=== PATIENT | male | born 1990 ===

== ENCOUNTER 2020-11-18 05:13 | Emergency (ER) | payer SELFPAY ==
[~2020-11-18] VITALS: Ht 170.2 cm; Wt 69.5 kg
[2020-11-18 05:14] VITALS: BP 130/85
[2020-11-18] MEDS ORDERED: PROPARACAINE OPHTH 0.5%, 15ML ONE (05:17)
[2020-11-18] MEDS ORDERED: FLUORESCEIN OPHTHALMIC 1 MG STRIP ONE (05:17)
--- NOTE | 2020-11-18 05:42 | NUR ---
PT REAL NAME MALATHI PT WAS HERE OTHER DAY UNDER [id number]. PT RAN TO BATHROOM FROM ROOM. PT WAS SMOKING SOMETHING IN BATHROOM, PT HAD A SUPERVISOR TUMBLERS IN HAND SITTING ON TOILET. WHEN ASK AND TOLD SECURITY WILL BE CALLED PT RAN OUT BACK DOOR INTO HOSPITAL. SECURITY NOTIFIED
== END 2020-11-18 05:49 | disposition left against medical advice (07) ==
LOC: ED 05:20
DX: H10.021 Other mucopurulent conjunctivitis, right eye (principal); F15.159 Other stimulant abuse with stimulant-induced psychotic disorder, unspecified; J45.909 Unspecified asthma, uncomplicated
CPT/HCPCS: 99283